=== PATIENT | male | born 1945 | race Caucasian/White ===

== ENCOUNTER → 2016-06-29 | Outpatient (CLI) | payer MEDICARE, BC ==
--- NOTE | 2016-06-29 21:25 | HKNOTE ---
DATE OF SERVICE: 06/29/2016 The patient comes in for checkup on both hips. He has had bilateral hip replacements, the right yen e with an ASR hip, the left side is a standard metal on metal hip (pinnacle). The patient has absol utely no pain in either hip. He comes in for a checkup. In November of last year he had pain in t he right groin for about a month, but he could not find time to come in and see me. There was no de ntal work around that time nor did he experience any infection. Since then, it has been "normal." His cobalt and chromium levels have all been low since the surgery. The patient is very active. He rides a bicycle for tens of miles every weekend. PHYSICAL EXAMINATION: VITAL SIGNS: Blood pressure 145/80, temperature 98.3. MUSCULOSKELETAL: Both hips have full range of motion without pain. No tenderness anywhere around e ither hip. IMAGING: Plain x-rays of his pelvis and hips obtained today show perfect bilateral hip replacements . All components are well attached to the bone without the slightest suggestion of loosening or any other problem. MANAGEMENT: The patient is being sent for repeat cobalt and chromium levels today. He is advised t hat it is highly unlikely that he will develop a cobalt and chromium problem having come this many y ears since his surgery, but we still have to remain vigilant. He does not need to return for repeat ed tests unless he develops pain or has any high suspicion of a problem. He will be called with the results of today's test. Dictated By: BETHANY CELESTE/IVETTE Conf#: [id number] DID#: [id number]
--- NOTE | 2016-06-30 10:20 | RADRPT ---
PROCEDURE: XR Pelvis and Hips. CLINICAL INDICATION: Pelvic pain. Bilateral hip pain. TECHNIQUE: Five views. Frontal pelvis. Frontal and lateral right hip. Frontal and lateral left hip. COMPARISON: 07/02/2013. FINDINGS: There is no fracture or dislocation. The soft tissues are normal. There are bilateral total hip arthroplasties which appears satisfactory. There is no fracture, disl ocation, or loosening. There is no lytic or blastic lesion. The upper pelvis is not included on the images. IMPRESSION: 1. Satisfactory postoperative appearance of both hips. RPTAT: QQ .Saran Leyva MD, MD Date Time Electronically viewed and signed by .Saran Leyva MD, on 06/30/2016 10:20 .R/
== END | disposition home or self-care (01) ==
LOC: HKI 14:10
DX: Z47.1 Aftercare following joint replacement surgery (principal); Z96.643 Presence of artificial hip joint, bilateral
CPT/HCPCS: 73523; G0463

== ENCOUNTER → 2016-11-23 | Outpatient (CLI) | payer MEDICARE, BC ==
--- NOTE | 2016-11-23 15:44 | RADRPT ---
PROCEDURE: XR BILATERAL HIPS WITH PELVIS. CLINICAL INDICATION: Bilateral hip pain TECHNIQUE: Three views were obtained. An AP view of the pelvis and frog lateral views of both hip s were performed. COMPARISON: 06/29/2016. FINDINGS: Right side: No change. There is no fracture or dislocation. The soft tissues are normal. Bipolar hem iarthroplasty appears appropriate. There is no fracture, dislocation, or loosening. There is no lyti c or blastic lesion. The upper pelvis is not included on the images. Left side: No change. There is no fracture or dislocation. The soft tissues are normal. Hip replacem ent arthroplasty appears appropriate. There is no fracture, dislocation, or loosening. There is no l ytic or blastic lesion. The upper pelvis is not included on the images. IMPRESSION: 1. No significant change from 06/29/2016. 2. Bilateral hip arthroplasties appear appropriate without evidence for loosening, subluxation or f racture. 3. No osseous fracture is seen. RPTAT: XX .Tim Fisher MD, MD Date Time Electronically viewed and signed by .Tim Fisher MD, on 11/23/2016 15:43 .T/
--- NOTE | 2016-12-06 05:08 | HKNOTE ---
DATE OF SERVICE: 11/23/2016 MAIN COMPLAINT: Pain in the right hip. HISTORY OF MAIN COMPLAINT: The patient underwent a left hip replacement in 2008 performed by me (standard hip replacement.) The patient underwent a right total hip replacement with an ASR socket on 02/26/2008. The patient had absolutely no problems with his hip until recently. The patient went on long hikes 4 days in a row in the [facility]. The last of the 4 days, he "took it easy" because he felt some pain in his right groin. About the same time he developed a cold/flu. He also has noted pain in the right groin and some pain in the lumbar spine area. He took 800 mg of ibuprofen which did not help much. After getting back to [place], the patient made an appointment to see me. His pain has improved somewhat since he returned. He has not had any recent infections other than the above mentioned "cold and flu." He also has previously had spine surgery by Dr. Ornelas, which was very successful, but he still gets some residual pain. The patient has had serial cobalt and chromium levels performed. The levels have increased slightly, but never has gone over 8. As patient well knows, I have told him several times that anything over 10 is of concern. Patient is an extremely youthful and fit looking 71-year-old male (he rides his bike possibly 100 miles a week.) PHYSICAL EXAMINATION: VITAL SIGNS: Height 5 foot 5, weight 160 pounds. Blood pressure 155/75, temperature 98.4. HIPS: Examination of the right hip, a full range of motion with some pain in the groin on forced flexion and forced internal rotation. Neurologic examination of the lower extremities is normal. IMAGING: Plain x-rays of his pelvis and hips obtained today were reviewed. These show 2 hip replacements with absolutely no abnormalities noted. All components are well aligned and well attached to the bone. DISCUSSION: The patient is advised that we need to rule out two possible problems. One would be infection in the hip and the second would be possible loosening of one the components. MANAGEMENT: Under sterile conditions, the patient's right hip was aspirated. Approximately 4 cc of slightly red tinged hip fluid was obtained. He certainly did not have the appearance of pus. There was not enough to perform cobalt and chromium levels as well as the necessary cell count and culture and sensitivity. 1. Patient is being sent for serum cobalt and chromium levels, CBC, sed rate and C-reactive protein. 2. He had a prescription for amoxicillin and doxycycline, which he will take continuously until we are pretty certain that there is no infection in his hip. 3. The patient will return to see me in 3 days for review of his test studies. Dictated By: Jose Guzmán MD /zana/elvi /Document#: [id number]
== END | disposition home or self-care (01) ==
LOC: HKI 09:14
DX: M25.551 Pain in right hip (principal)
CPT/HCPCS: 20610; 73522; G0463

== ENCOUNTER → 2016-11-28 | Outpatient (CLI) | payer MEDICARE, BC ==
--- NOTE | 2016-11-28 19:38 | HKNOTE ---
DATE OF SERVICE: 11/28/2016 HISTORY OF PRESENT ILLNESS: Patient comes in for review of his labs. His hip is actually feeling better. He states that the pain in his hip is now about 75% improved. His temperature today is normal at 98.4. Blood work obtained on 11/23/2016 shows an elevation of "absolute" monocytes at 1161 (upper limit of normal is 950). White cell count was 7.9. The C-reactive protein 82 and the sedimentation rate 50. Patient was advised that I am not exactly sure what these numbers mean. Sed rate and C-reactive protein are very concerning. I told the patient to remain without taking food or water until he hears from me again, meanwhile he is sent for a stat CBC. Unfortunately, they did not repeat the sed rate or the C-reactive protein but the total white cell count is exactly the same as the last measurement and monocytes likewise are unchanged. It is difficult to know exactly what these numbers mean. I contacted Dr. Kristian Reese. He likewise is puzzled by these numbers, especially the fact that the white cell count has remained stable. Because of the elevated sed rate and C-reactive protein, he feels that the patient should be evaluated either by Infectious Disease or by Hematology. Patient was contacted at home and I advised him that he does not need to prepare himself for an emergency washout of the hip today but that it is still possible. I will have him see Dr. Caraballo today, perhaps this afternoon if possible, otherwise tomorrow. It is difficult to know where to go with this patient. Dictated By: Jose Guzmán MD /zana/ishaan /Document#: [id number]
== END | disposition home or self-care (01) ==
LOC: HKI 09:21
DX: M25.551 Pain in right hip (principal); M25.552 Pain in left hip

== ENCOUNTER → 2016-11-28 | Outpatient (CLI) | payer MEDICARE, BC ==
[2016-11-28 12:23] LABS: BASOPHIL # 0.1 10^3/ul (0.0-0.1); BASOPHILS % 0.8 % (0.0-2.0); EOSINOPHILS # 0.1 10^3/ul (0.0-0.5); EOSINOPHILS % 0.9 % (0.0-7.0); HEMATOCRIT 42.5 % (42.0-52.0); HEMOGLOBIN 14.1 g/dl (14.0-18.0); LYMPHOCYTES # 2.7 10^3/ul (0.8-2.9); LYMPHOCYTES % 33.7 % (15.0-51.0); MEAN CORPUSCULAR HEMOGLOBIN 29.1 pg (29.0-33.0); MEAN CORPUSCULAR HGB CONC 33.2 g/dl (32.0-37.0); MEAN CORPUSCULAR VOLUME 87.6 fl (82.0-101.0); MEAN PLATELET VOLUME 9.8 fl (7.4-10.4); MONOCYTE # 0.7 10^3/ul (0.3-0.9); MONOCYTES % 9.4 % (0.0-11.0); NEUTROPHIL # 4.3 10^3/ul (1.6-7.5); NEUTROPHILS % 54.7 % (39.0-77.0); PLATELET COUNT 379 10^3/UL (140-415); RED BLOOD COUNT 4.85 10^6/ul (4.70-6.10); RED CELL DISTRIBUTION WIDTH 14.3 % (11.5-14.5); WHITE BLOOD COUNT 7.9 10^3/ul (4.8-10.8)
== END | disposition home or self-care (01) ==
LOC: LAB 11:26
DX: T84.51XA Infection and inflammatory reaction due to internal right hip prosthesis, initial encounter (principal)
CPT/HCPCS: 85025

== ENCOUNTER → 2016-11-30 | Outpatient (CLI) | payer MEDICARE, BC ==
--- NOTE | 2016-11-30 22:14 | HKNOTE ---
DATE OF SERVICE: 11/30/2016 SUBJECTIVE: Patient saw Dr. Bear (Infectious Disease) yesterday. His report was faxed over to me. He does not believe that the findings constitute an infection in the hip but he recommends getting a white cell count scan on the hip. I spoke with him on the phone last night and he indicated to me that he did not believe that an irrigation washout of the hip is indicated. Patient states that his pain is even better today than it was when I saw him last time. There is marked improvement but he still has some pain. MANAGEMENT: Patient being sent for a white cell scan to further try and rule out or quantify any informational infection that may be present. Patient has sufficient antibiotics to continue and he will be seen by me again on Sunday for evaluation. He is being sent today for repeat CBC, sed rate, and C-reactive protein. Dictated By: Jose Guzmán MD /zana/ishaan /Document#: [id number]
== END | disposition home or self-care (01) ==
LOC: HKI 10:12
DX: M25.551 Pain in right hip (principal)
CPT/HCPCS: G0463

== ENCOUNTER → 2016-12-05 | Outpatient (CLI) | payer MEDICARE, BC ==
--- NOTE | 2016-12-06 13:01 | RADRPT ---
PROCEDURE: Indium-111 labeled white blood cell scan CLINICAL INDICATION: 71 -year-old patient with hip pain, status post bilateral hip replacements, f ever and leukocytosis. TECHNIQUE: Following the intravenous injection of 0.28 mCi of Indium-111 labeled white blood cells , whole body anterior and posterior planar images were obtained 24 hours post injection. COMPARISON: No prior indium scans. X-ray of both hips dated November 23, 2016. FINDINGS: No definite abnormal areas of increased activity are seen in the study, including visualized portion s of the head and neck, chest, abdomen, pelvis and visualized portions of the upper and lower extrem ities bilaterally. Physiologic uptake is noted in the liver and spleen. IMPRESSION: No definite abnormal focal areas of increased activity both hips and elsewhere in the remainder of t he body. RPTAT: HH .Yelitza Hooper MD, MD Date Time Electronically viewed and signed by .Yelitza Hooper MD, on 12/06/2016 13:01 .L/
== END | disposition home or self-care (01) ==
LOC: NUC 10:30
PROVIDERS: ATTEND Internal Medicine Infectious Disease
DX: T84.51XD Infection and inflammatory reaction due to internal right hip prosthesis, subsequent encounter (principal); Y84.8 Other medical procedures as the cause of abnormal reaction of the patient, or of later complication, without mention of misadventure at the time of the procedure
CPT/HCPCS: 78806; A9570

== ENCOUNTER → 2016-12-05 | Outpatient (CLI) | payer MEDICARE, BC ==
--- NOTE | 2016-12-05 18:18 | HKNOTE ---
DATE OF SERVICE: 12/05/2016 INTERVAL HISTORY: The patient returns with the new labs for evaluation. He has not yet had his white cell scan because we had trouble finding a place where it could be done. He is going to have the procedure performed. This afternoon at [facility]. Meanwhile, the lab from his last visit were reviewed. These show that the set of the sedimentation rate has now dropped to 2 and the C-reactive protein has dropped to 3.3. The patient's temperature is normal. These are all very good signs. EXAMINATION OF THE RIGHT HIP: A full range of motion with some mild pain on forced internal rotation. PLAN: The patient ran out of antibiotics this weekend. I do not think we need to start a new course of antibiotics just yet. He will have a white cell scan done today, and we will determine whether or not further treatment is needed. I feel very optimistic that we are not dealing with an infection in the hip joint. Dictated By: Jose Guzmán MD /zana/abigail /Document#: [id number]
== END | disposition home or self-care (01) ==
LOC: HKI 09:09
DX: Z09 Encounter for follow-up examination after completed treatment for conditions other than malignant neoplasm (principal); M25.551 Pain in right hip
CPT/HCPCS: G0463

== ENCOUNTER → 2016-12-07 | Outpatient (CLI) | payer MEDICARE, BC ==
--- NOTE | 2016-12-08 11:23 | HKNOTE ---
DATE OF SERVICE: SUBJECTIVE: Patient comes in with an indium labeled white cell scan, which is reported as showing " no definite abnormal focus of increased activity in both hips or elsewhere in the remainder of the b layne." Patient's pain is now completely resolved. Patient is advised that I do not believe he has infection and if he had any infection it certainly h as resolved now as a result of the antibiotics given. I counseled him on the excessive activity amber t he engages in. I believe that the sequence of events shows that he overdid, he is hiking and biki ng and got hemarthrosis in his right hip and probably the antibiotics were able to preemptively vania ge the situation. The patient will be seen again as necessary. Dictated By: BETHANY CELESTE/IVETTE Conf#: [id number] DID#: [id number]
== END | disposition home or self-care (01) ==
LOC: HKI 08:58
DX: Z09 Encounter for follow-up examination after completed treatment for conditions other than malignant neoplasm (principal); M25.552 Pain in left hip; M25.551 Pain in right hip